=== PATIENT | female | born 1990 | race Two or more races ===

== ENCOUNTER 2020-05-23 21:22 | Emergency (ER) | payer OTHER ==
[2020-05-23 21:29] VITALS: TEMP 97; BMI 27.4
[2020-05-23] MEDS ORDERED: FAMOTIDINE 20 MG/50 ML IVPB 20 MG/50 ML MG IVPB ONE ×2 (21:34→21:46)
[2020-05-23] MEDS ORDERED: methylPREDNISolone NA SUCC 125 MG/2 ML VIAL IVPUSH ONE (21:34)
[2020-05-23] MEDS ORDERED: methylPREDNISolone NA SUCC 125 MG/2 ML VIAL ONE (21:48)
[2020-05-23 23:38] VITALS: BP 109/62; PULSE 71
== END 2020-05-23 23:57 | disposition home or self-care (01) ==
LOC: JER 21:22
PROC: 3E033GC Introduction of Other Therapeutic Substance into Peripheral Vein, Percutaneous Approach (ICD-10-PCS; principal; 2020-05-23)
PROC: 3E033GC Introduction of Other Therapeutic Substance into Peripheral Vein, Percutaneous Approach (ICD-10-PCS; 2020-05-23)
PROC: 3E033GC Introduction of Other Therapeutic Substance into Peripheral Vein, Percutaneous Approach (ICD-10-PCS; 2020-05-23)
DX: T78.40XA Allergy, unspecified, initial encounter (principal)
CPT/HCPCS: 99284-25